=== PATIENT | female | born 1985 | race Caucasian/White ===

== ENCOUNTER 2017-03-11 07:10 | Inpatient (IN) | payer SELFPAY ==
[~2017-03-11] VITALS: Ht 152.4 cm; Wt 90.7 kg
[2017-03-11] VITALS (13 sets, daily range): BP systolic 111–136; BP diastolic 55–81
[~2017-03-11 07:10] MED LIST: AC325T PO; ALBU1.25 IH; AMOX500T2 PO; HYDR-3754 PO; NF-MEDROXA IM; OXYC1TAB87 PO; PREN1TAB76 PO; SULF-228 PO; TRM50T PO; VENL50TA2 PO
[2017-03-11] MEDS ORDERED: SODIUM CHLORIDE FLUSH 10 ML ONE (07:48)
[2017-03-11] MEDS ORDERED: OXYTOCIN 10 UNIT/ML (PITOCIN) 1 ML VIAL ONE (08:06)
[2017-03-11] MEDS: OXYTOCIN INJ 20 UNIT in NS 1000ml 1,000 ML IV PRN ×2 (08:07→09:57)
[2017-03-11] MEDS ORDERED: OXYTOCIN INJ 20 UNIT in NS 1000ml 1,000 ML IV PRN (08:18)
[2017-03-11] MEDS ORDERED: M-M-R II (MEASLES,MUMPS,RUBELLA) VACCINE SC SCH ×2 (08:20→08:30)
[2017-03-11] MEDS ORDERED: CALCIUM CARBONATE CHEWABLE 300 MG (TUMS) TABLET PO PRN ×2 (08:20→08:30)
[2017-03-11] MEDS ORDERED: HYDROcodone/APAP 5 MG/325 MG (NORCO) TAB PO PRN ×2 (08:20→08:30)
[2017-03-11] MEDS ORDERED: ACETAMINOPHEN 325 MG TAB (TYLENOL) PO PRN ×2 (08:20→08:30)
[2017-03-11] MEDS ORDERED: LANOLIN OINTMENT 28 GM TUBE TOP PRN ×2 (08:20→08:30)
[2017-03-11 08:32] LABS: MEAN CORPUSCULAR HEMOGLOBIN 28.4 PG (26.0-34.0); MEAN PLATELET VOLUME 9.1 FL (6.0-9.5); WHITE BLOOD COUNT 20.23 10^3uL (4.0-11.0)
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
--- NOTE | 2017-03-11 08:35 | History and Physical (E) ---
History & Physical (OB) Subjective: CC:Contractions HPI: 31 y/o with no care presents with painful contractions. LMP 08/14/16 would make us 34+2 WGA by dates, fundus 35cm. Complete dilation per nursing, meconium stained fluid. Has not had complications with in the past, reports THC use this . Did not get care due to uninsured. Has not had a baby with this father before, he has 3 other healthy children per Rama. She did reports + FM today. PNC: OB Hx: x4 at term, no complications. PMHx:H/O Bipolar disorder, GE reflux, UTI 2 weeks ago, finishing Keflex for UTI. PSHx:None Allergies: Coded Allergies: ibuprofen (Unverified Adverse Reaction, Severe, Swelling, 05/22/12) Home Medications: Active Scripts Tramadol HCl 50 Mg Tablet1-2 Tab PO Q6H #24 TAB Ref 0 Prov:GUNNER HA MD 05/13/16 Reported Medications Medroxyprogesterone Acetate (Depo-Provera)150 Mg/1 Ml Disp.salsz806 Mg IM [id number] 05/13/16 Venlafaxine HCl (Effexor)50 Mg Auoobl34 Mg PO DAILY 05/13/16 Objective: Allergies Coded Allergies ibuprofen (Unverified Adverse Reaction, Severe, Swelling, 05/22/12) Reported Meds: Ranitidine daily General: Alert and oriented, NAD Chest: CTA Abdomen: Gravid Cardiovasular: RRR, No murmur Extremities: No edema FHT's: Cx: Complete, +2, VTX, meconium stained fluid [place]:q 5 min Screenings: No care. GBS Unknown. Problems/Plans: (1) No care in current (2) Normal labor and delivery (3) Bipolar affective disorder, currently manic, severe, with psychotic features No care admitted for active labor and imminent delivery, meconium stained fluid. Estimate 34-35 WGA by dates, but EFW 7 lbs so likely term. labs drawn and pending, UA and tox screen pending. Anticipate vaginal delivery. Additional Copies to: End of Report . MAXIMO ANDREWS MD Mar 11, 2017 08:35
[2017-03-11 08:38] LABS: BILIRUBIN,URINE Negative (Negative); COLOR,URINE Yellow; GLUCOSE, URINE (UA) Negative (Negative); LEUKOCYTE ESTERASE, URINE 3+ (Negative); UROBILINOGEN,URINE 0.2 mg/dL (0.2-1.0)
--- NOTE | 2017-03-11 08:38 | Vaginal Delivery Summary (E) ---
Vaginal Delivery Summary At 07:15 on 03/11/17 this 31 year old G 5 now P% presented to the Labor and Delivery Unit at 34.2?? weeks gestation by dates, EFW 7lb. The patient without care. She presented for Active labor . At presentation, she was 10 cm dilated. SROM had occured with meconium stained fluid returned. of vertex viable 7" 5' male , vigorous and crying. Suctioned well prior to clamping and cutting cord. Intact placenta delivered over intact perineum. No complications, EBL 200cc. MAXIMO ANDREWS MD Mar 11, 2017 08:38
[2017-03-11 08:52] LABS: AMPHETAMINE SCREEN, URINE Positive (Negative); CANNABINOID SCREEN, URINE Negative (Negative); CLARITY,URINE Slightly Cloudy; METHAMPHETAMINE SCREEN URINE S POSITIVE (NEGATIVE); OPIATE SCREEN URINE Negative (Negative); PROPOXYPHENE STAT NEGATIVE (NEGATIVE); URINE CENTRIFUGED VOLUME 12 mL
[2017-03-11] MEDS ORDERED: MISOPROSTOL 200 MCG (CYTOTEC) TABLET PR ONE (11:25)
--- NOTE | 2017-03-11 11:26 | Progress Note (E) ---
Progress Note Has had >1000 cc estimated blood loss since delivery. Tolerating well, PP oxytocin infusing, intermittent atony massaged back to normal tone each time. Bimanual exam completed with 250 in clots evacuated, atony again massaged to good tone with evacuation. Will give 800 mcg misoprostol, continue to monitor bleeding. MAXIMO ANDREWS MD Mar 11, 2017 11:26
[2017-03-11 17:34] LABS: GC-CHLAMYDIA SOURCE URINE; N.gonorrhoeae SOURCE URINE
[2017-03-11 19:53] LABS: HEPATITIS B SURFACE ANTIGEN C Negative
[2017-03-11] MEDS ORDERED: DOCUSATE SODIUM 100 MG (COLACE) CAP PO SCH ×2 (21:00)
[2017-03-12 08:20] VITALS: BP 108/69
[2017-03-12 09:42] LABS: BASOPHILS % (AUTO) 0 % (0-2); EOSINOPHILS # (AUTO) 0.2 10^3uL; EOSINOPHILS % (AUTO) 2 % (0-4); LYMPHOCYTES # (AUTO) 2.4 X10^3; MEAN CORPUSCULAR HEMOGLOBIN 27.7 PG (26.0-34.0); MEAN CORPUSCULAR HGB CONC 32.5 g/dL (31.0-37.0); MEAN CORPUSCULAR VOLUME 85 FL (80-100); MEAN PLATELET VOLUME 9.1 FL (6.0-9.5); MONOCYTES # (AUTO) 1.3 X10^3; MONOCYTES % (AUTO) 10 % (3-11); NEUTROPHILS # (AUTO) 8.9 X10^3; NEUTROPHILS % (AUTO) 68 % (51-67); PLATELET COUNT 344 10^3uL (150-450); WHITE BLOOD COUNT 12.99 10^3uL (4.0-11.0)
--- NOTE | 2017-03-12 10:10 | NUR ---
Report made to [facility] ([facility]) regarding mother testing positive. (Intake ID [id number]). Contacted [employer] [employer] and spoke to Esteban Vasquez. He reported they will not be involved unless baby's test results come back positive. will update them if baby is positive. Addendum: 03/12/17 at 1421 by Maiar MERLOS Nursing staff notified SW of baby's urine screen being positive. SW notified Capt. Vasquez of this new information. Since mother resides in the [facility] he will turn the case over to [facility] David Gandhi. QUANG contacted the [facility] [employer] [facility] and updated the previous report made to include the baby's positive drug screen and that law enforcement was notified. Asked DCF worker to coordinate a visit with mother with law enforcement. Dr. Leblanc and Dr. Goldstein have informed mother of the positive drug screens and DCF and law enforcement being notified. Law enforcement will be here this afternoon to visit with mom. Nursing staff notified.
[2017-03-12] MEDS ORDERED: FERROUS SULFATE 325 MG (IRON) TABLET PO SCH (13:25)
--- NOTE | 2017-03-12 13:30 | Progress Note (E) ---
Post- Progress Note Subjective: Doing very well . Mom and tested positive for THC and meth, and is being investigated for home safety. GBS unknown, no care. Tdap after last . Objective: Vital Signs Date Time Temp Pulse Resp B/P Pulse Ox O2 Delivery O2 Flow Rate FiO2 03/12/17 08:20 97.5 76 16 108/69 98 Room air I & O 03/11/17 03/12/17 19:00 07:00 Intake Total 2000 ml Output Total 1000 ml Balance 1000 ml Laboratory Tests 03/12/17 09:30: Basophils # (Auto) 0.0, Basophils (%) (Auto) 0, Eosinophils # (Auto) 0.2, Eosinophils (%) (Auto) 2, Hematocrit 27.70, Hemoglobin 9.0, Lymphocytes # (Auto ) 2.4, Lymphocytes (%) (Auto) 18, Mean Corpuscular Hemoglobin 27.7, Mean Corpuscular Hemoglobin Concent 32.5, Mean Corpuscular Volume 85, Mean Platelet Volume 9.1, Monocytes # (Auto) 1.3, Monocytes (%) (Auto) 10, Neutrophils # (Auto ) 8.9, Neutrophils (%) (Auto) 68, Platelet Count 344, Red Blood Count 3.25, Red Cell Distribution Width 14.3, White Blood Count 12.99 Blood type: , Current Medications Acetaminophen 650 mg Q4H PRN PO; Start 03/11/17 at 08:30 Docusate Sodium 100 mg HS PO Last administered on 03/11/17t 20:57; Admin Dose 100 MG; Start 03/11/17 at 21:00 Acetaminophen/ Hydrocodone Bitart Total acetaminophen not... Q4H PRN PO; Start 03/11/17 at 08:30 Calcium Carbonate 1-2 tablets PO q4 ho... Q4H PRN PO; Start 03/11/17 at 08:30 General: Alert and oriented, NAD Abdomen: Soft, non-distended, fundus firm Extremities: No edema Cardiovascular: RRR, No murmur Problems/Plans: (1) No care in current (2) Normal labor and delivery (3) Bipolar affective disorder, currently manic, severe, with psychotic features Comment Doing great . Had some increased lochia , but treated with bimanual exam and misoprostol and resolved very well. Hgb stable at 9. Will plan discharge tomorrow. MAXIMO ANDREWS MD Mar 12, 2017 13:30
--- NOTE | 2017-03-12 16:11 | Discharge Summary (E) ---
OB Discharge Summary Admit Date/Time Mar 11, 2017 at 08:15 Discharge Date/Time 03/12/17 Admitting Provider Maximo Andrews MD Primary Care Provider Attending Provider Maximo Andrews MD Consulting Provider Procedures on 03/11/17 without complication. Admission Diagnosis Active labor, no care History and Present Illness See History and Physical for complete details. Hospital Course and Treatment Admitted for active labor with complete dilation. No care, LMP made 34-35 weeks but fundal height more consistent with term. Urine drug screen positive for THC and meth. of vigorous, viable male , meconium stained fluid. had some increased lochia controlled with bimanual exam and misoprostol and PP pitocin. course uncomplicated, Hgb stable at 9.0. Discharged to room in on PPD#1. Discharge Physicial Exam General Alert and oriented, NAD Abdomen Soft, non-distended, fundus firm Extremities No edema Cardiovascular: RRR, No murmur Laboratory Results Past 24 Hrs 03/12/17 09:30: Basophils # (Auto) 0.0, Basophils (%) (Auto) 0, Eosinophils # (Auto) 0.2, Eosinophils (%) (Auto) 2, Hematocrit 27.70, Hemoglobin 9.0, Lymphocytes # (Auto ) 2.4, Lymphocytes (%) (Auto) 18, Mean Corpuscular Hemoglobin 27.7, Mean Corpuscular Hemoglobin Concent 32.5, Mean Corpuscular Volume 85, Mean Platelet Volume 9.1, Monocytes # (Auto) 1.3, Monocytes (%) (Auto) 10, Neutrophils # (Auto ) 8.9, Neutrophils (%) (Auto) 68, Platelet Count 344, Red Blood Count 3.25, Red Cell Distribution Width 14.3, White Blood Count 12.99 Discharge Disposition Home (rooming in with infant) Instructions Nothing PV 6 weeks. No lifting >20 lbs for 2 weeks. Diet Regular Follow up Comment Benji 6 weeks Discharge Diagnosis Problems/Plans: (1) No care in current (2) Normal labor and delivery (3) Bipolar affective disorder, currently manic, severe, with psychotic features Comment doing well PPD#1. Decided to discharge to home and room in tonight with . Ongoing DCF investigation, and I reviewed that if she leaves and returns with any concern for impairment, the authorities will be contacted. F/ U 6 weeks. Copies to: End of Report . MAXIMO ANDREWS MD Mar 12, 2017 16:11
[2017-03-12] MEDS ORDERED: IBUP-1772 PO (16:14)
--- NOTE | 2017-03-12 16:45 | NUR ---
PT DISCHARGED. TEACHING DONE. LEFT UNIT AT 1640 AMBULATORY TO PRIVATE VEHICLE. STATES SHE WILL RETURN THIS PM.
[2017-03-13 13:52] LABS: RUBELLA AB IGG 1.82 OD Ratio (>1.09)
== END 2017-03-12 16:40 | disposition home or self-care (01) | DRG 775 ==
LOC: OBGOP 07:10 → OB 07:12 → OBGOP 08:27
PROVIDERS: ADMIT Obstetrics & Gynecology; ATTEND Obstetrics & Gynecology
PROC: 10E0XZZ Delivery of Products of Conception, External Approach (ICD-10-PCS; principal; 2017-03-11)
DX: O60.14X0 Preterm labor third trimester with preterm delivery third trimester, not applicable or unspecified (principal); F31.2 Bipolar disorder, current episode manic severe with psychotic features; O99.324 Drug use complicating childbirth; O77.0 Labor and delivery complicated by meconium in amniotic fluid; O99.344 Other mental disorders complicating childbirth; Z37.0 Single live birth; Z3A.34 34 weeks gestation of pregnancy; F12.90 Cannabis use, unspecified, uncomplicated; F15.90 Other stimulant use, unspecified, uncomplicated
CPT/HCPCS: 36415; 80307; 81003; 81015; 82947; 85025; 85027; 86592; 86762; 86850; 86870; 86900; 86901; 87340; 87491; 87591